=== PATIENT | male | born 1960 | race Caucasian/White ===

== ENCOUNTER 2018-07-17 05:47 | Emergency (ER) | payer BC ==
[2018-07-17] MEDS ORDERED: DEXAMETHASONE 10 MG/ML VIAL PO STA (06:33)
[2018-07-17] MEDS ORDERED: KETOROLAC 60 MG/2 ML VIAL IM STA (06:33)
[2018-07-17] MEDS ORDERED: fentaNYL 100 MCG/2 ML VIAL IM STA (06:34)
--- NOTE | 2018-07-17 07:25 | ED Physician Documentation ---
PD HPI BACK PAIN - Stated complaint Stated Complaint: BK PX - Chief complaint Chief Complaint: Back Pain - History obtained from History obtained from: Patient, Family () - History of Present Illness Timing - onset: How many days ago (4) Timing - details: Still present Location: Left Quality: Pain, Spasm Worsened by: Movement Similar symptoms before: No diagnosis - Additional information Additional information: The patient is a 57-year-old male who presents with left lower back pain radiating down his left leg. His symptoms started 4 days ago. He has been off work for the past 4 days, and was returning to work this morning when his back "locked up on me." He denies fever, urinary incontinence, weakness, but states that his left foot feels slightly numb. He has a history of low back pain intermittently in the past, but never this bad before. Review of Systems Constitutional: denies: Fever Nose: denies: Congestion Cardiac: denies: Chest pain / pressure Respiratory: denies: Dyspnea, Cough GI: denies: Abdominal Pain, Nausea, Vomiting : denies: Dysuria, Incontinent Skin: denies: Rash Musculoskeletal: reports: Back pain Neurologic: reports: Numbness (Tingling in left foot.). denies: Focal weakness, Headache PD PAST MEDICAL HISTORY - Past Medical History Past Medical History: No Neuro: None Endocrine/Autoimmune: None - Past Surgical History Past Surgical History: No - Present Medications Home Medications: Ambulatory Orders Medication Instructions Recorded Confirmed Cyclobenzaprine [Flexeril] 10 mg PO TID PRN #20 tablet 07/17/18 Hydrocodone/Acetaminophen 1 - 2 each PO Q6H PRN #14 tablet 07/17/18 [Hydrocodon-Acetaminophen 5-325] - Allergies Allergies/Adverse Reactions: Allergies Allergy/AdvReac Type Severity Reaction Status Date / Time No Known Drug Allergies Allergy Verified 07/17/18 06:36 - Social History Does the pt smoke?: No Smoking Status: Never smoker Does the pt drink ETOH?: Yes Does the pt have substance abuse?: No - Immunizations Immunizations are current?: Yes Immunizations: TDAP current <10years - POLST Patient has POLST: No PD ED PE NORMAL - Vitals Vital signs reviewed: Yes (Borderline systolic hypertension initially.) - General General: Alert and oriented X 3, Well developed/nourished - HEENT HEENT: Atraumatic - Neck Neck: No bony TTP - Cardiac Cardiac: RRR - Respiratory Respiratory: No respiratory distress, Clear bilaterally - Abdomen Abdomen: Soft, Non tender - Back Back: No CVA TTP, No spinal TTP, Other (There is tenderness to palpation over the left sacroiliac region. There is no tenderness to palpation along the spinous processes.) - Derm Derm: No rash - Extremities Extremities: No edema, No calf tenderness / cord, Other (Straight leg raise is positive on the left at 25 elevation; negative on the right.) - Neuro Neuro: Alert and oriented X 3, No motor deficit, No sensory deficit, Other (Deep tendon reflexes are 2+ and equal bilaterally at the patellar and Achilles tendons.) Results - Vitals Vitals: Oxygen O2 Source Room air PD MEDICAL DECISION MAKING - ED course Complexity details: re-evaluated patient, considered differential, d/w patient, d/w family ED course: The patient's lower back pain is most consistent with left sided sciatica. His clinical presentation does not suggest epidural abscess, spinal stenosis, or cauda equina syndrome. Treatment in the emergency department included administration of Dexamethasone 10 mg orally, toradol 60 mg IM and fentanyl 75 mcg IM. This symptoms significantly improved following the above treatment. The patient is being discharged with prescription for Flexeril and for Vicodin, 14 tablets. I discussed with him and his the expected course of illness, symptomatic treatment and outpatient follow-up, as well as potentially worrisome signs or symptoms that should prompt reevaluation in the emergency department. Departure - Departure Disposition: 01 Home, Self Care Clinical Impression: Low back pain with sciatica Qualifiers: Chronicity: acute Back pain laterality: left Sciatica laterality: sciatica of left side Qualified Code(s): M54.42 - Lumbago with sciatica, left side Condition: Stable Instructions: ED Sciatica Follow-Up: [facility] [Provider Group] [facility] [Provider Group] Prescriptions: Cyclobenzaprine [Flexeril] 10 mg PO TID PRN #20 tablet PRN Reason: Spasms Hydrocodone/Acetaminophen [Hydrocodon-Acetaminophen 5-325] 1 - 2 each PO Q6H PRN #14 tablet PRN Reason: pain Comments: Apply ice pack to your lower back intermittently for the next 3 or 4 days. You can use ibuprofen, up to 800 mg 3 times daily for its anti-inflammatory effect. You can use as Vicodin and Flexeril prescribed if needed for pain or muscle spa sms. Let pain be your guide to activity level. Follow up with your primary physician within 1-2 weeks. Call to schedule an appointment. Return to the emergency department if you develop increasing pain, numbness or weakness, urinary incontinence, or otherwise worsening symptoms. Forms: Activity restrictions Discharge Date/Time: 07/17/18 07:30
[2018-07-17 07:46] VITALS: BP 128/74
== END 2018-07-17 07:30 | disposition home or self-care (01) ==
LOC: ED 05:47
DX: M54.42 Lumbago with sciatica, left side (principal)
CPT/HCPCS: 96372; 99283

== ENCOUNTER 2021-01-30 08:00 | Outpatient (CLI) | payer BC | END 2021-01-30 23:59 | disposition home or self-care (01) | LOC: LAB.S 08:00 | PROVIDERS: ATTEND Emergency Medicine | DX: Z01.84 Encounter for antibody response examination (principal); U07.1 COVID-19 | CPT/HCPCS: 36415; 86769 ==